=== PATIENT | male | born 1980 | race African-American/Black ===

== ENCOUNTER 2022-06-17 09:58 | Emergency (ER) | payer OTHER ==
[2022-06-17] MEDS ORDERED: PANTOPRAZOLE 40 MG TABLET PO STA (10:44)
[2022-06-17] MEDS ORDERED: MAG HYDROX/AL HYDROX/SIMETH 30 ML, HYOSCYAMINE ELIXIR 10 ML PO STA ×2 (10:44)
[2022-06-17] MEDS ORDERED: KETOROLAC 15 MG/ML 1 ML VIAL IM STA (10:45)
[2022-06-17] MEDS ORDERED: diphenhydrAMINE 25 MG CAP PO STA (10:45)
[2022-06-17] MEDS ORDERED: DEXAMETHASONE SOD PHOSPHATE 10 MG/ML 1 ML VIAL IM STA (10:45)
--- NOTE | 2022-06-17 12:00 | ED ---
Extremity Problem HPI - General Chief complaint: Extremity Injury, Upper Stated complaint: shoulder pain Time Seen by Provider: 06/17/22 10:09 Source: patient, EMS, RN notes reviewed Mode of arrival: EMS Limitations: no limitations - History of Present Illness Initial comments: This is a 41-year-old male who presents to the emergency department for burning in his armpits and acid reflux. He is currently being treated at [facility] for cocaine use and has been there for 5 days. States that over the last day, he has had an increase in heartburn as well as burning and itching to both armpits. He did try to use rubbing alcohol in the armpits with no relief. He has a history of acid reflux which he treats with Prilosec, however he has not taken this today. Denies any history of problems with his armpits. Denies any fevers, chills, sore throat, cough, dyspnea, chest pain, palpitations, abdominal pain, nausea, vomiting, diarrhea, back pain, or headaches. MD Complaint: extremity pain - Related Data Previous Rx's Medication Instructions Recorded Omeprazole [PriLOSEC] 40 mg PO DAILY #15 cap 06/17/22 Triamcinolone 0.1% Cream [Kenalog 1 applicatio TOPICAL QID PRN #80 gm 06/17/22 0.1% Cream] diphenhydrAMINE [Benadryl] 25 mg PO BID PRN #10 capsule 06/17/22 predniSONE 50 mg PO DAILY 5 Days #5 tab 06/17/22 Allergies Allergy/AdvReac Type Severity Reaction Status Date / Time No Known Allergies Allergy Verified 06/17/22 10:07 Review of Systems ROS Statement: Those systems with pertinent positive or pertinent negative responses have been documented in the HPI. ROS Other: All systems not noted in ROS Statement are negative. Past Medical History Past Medical History: GERD/Reflux History of Any Multi-Drug Resistant Organisms: None Reported Past Surgical History: Appendectomy, Orthopedic Surgery Past Psychological History: ADD/ADHD, Bipolar Smoking Status: Current every day smoker Past Alcohol Use History: Occasional Past Drug Use History: Cocaine General Exam Limitations: no limitations General appearance: alert, in no apparent distress Head exam: Present: atraumatic, normocephalic, normal inspection Respiratory exam: Present: normal lung sounds bilaterally. Absent: respiratory distress, wheezes, rales, rhonchi, stridor Cardiovascular Exam: Present: regular rate, normal rhythm, normal heart sounds. Absent: systolic murmur, diastolic murmur, rubs, gallop, clicks Extremities exam: Present: other (Tenderness to palpation of the axilla bilaterally. Range of motion does reproduce symptoms, however he has full active and passive range of motion.) Neurological exam: Present: alert, oriented X3, CN II-XII intact Psychiatric exam: Present: normal affect, normal mood Course Vital Signs 06/17/22 06/17/22 10:02 13:06 Temperature 98.1 F 97.7 F Pulse Rate 75 86 Respiratory 18 16 Rate Blood Pressure 127/88 147/77 O2 Sat by Pulse 100 99 Oximetry Medical Decision Making - Medical Decision Making This is a 41-year-old male who presents to the emergency department for pain in the bilateral axilla and acid reflux. He was given a dose of Prilosec and a GI cocktail for the acid reflux, which he states was very effective. The symptoms in his armpits were treated with Benadryl, Decadron, and Toradol, followed by application of triamcinolone cream. He noted remarkable improvement afterwards as well. Symptoms likely related to a dermatitis of some sort. Instructed him to avoid any heavy or scented soaps or lotions. Also instructed him to avoid using rubbing alcohol, as this can make symptoms worse. Prescription for prednisone, Prilosec, and triamcinolone cream provided, with dosing and instructions reviewed. He was also given a prescription for Benadryl to be used as needed for any additional itching or burning. Advised that this can be sedating. Patient discharged back to [facility]. Return precautions reviewed in depth, the patient is instructed to return to the emergency department with any new, worsening, or concerning symptoms. Patient verbalized understanding. This case was discussed in detail with the attending ED physician. Presentation, findings, and treatment plan discussed in detail as well. Disposition Clinical Impression: Acid reflux, Axillary pain Disposition: HOME SELF-CARE Instructions (If sedation given, give patient instructions): GERD (Gastroesophageal Reflux Disease) (ED) Additional Instructions: Return to the emergency department with any new, worsening, or concerning symptoms. Take the Prilosec daily for control of your acid reflux. You can apply the Kenalog cream 2-4 times daily in the armpit region. Take the prednisone daily for 5 days and the benadryl up to twice daily for itching/burning. Follow up with your primary care provider in 1-2 days. Prescriptions: diphenhydrAMINE [Benadryl] 25 mg PO BID PRN #10 capsule PRN Reason: Itching Triamcinolone 0.1% Cream [Kenalog 0.1% Cream] 1 applicatio TOPICAL QID PRN #80 gm PRN Reason: Itching predniSONE 50 mg PO DAILY 5 Days #5 tab Omeprazole [PriLOSEC] 40 mg PO DAILY #15 cap Is patient prescribed a controlled substance at d/c from ED?: No Referrals: None,Stated [Primary Care Provider] - 1-2 days
[2022-06-17] MEDS ORDERED: HYDROCORTISONE 1% CREAM 30 GM TUBE TOPICAL ONE (12:16)
[2022-06-17] MEDS ORDERED: TRIAMCINOLONE ACET 0.1% OINTMENT 15 GM TUBE TOPICAL ONE (12:18)
[2022-06-17 13:07] VITALS: BP 147/77; PULSE 86; RESP 16; TEMP 97.7
== END 2022-06-17 13:14 | disposition home or self-care (01) ==
LOC: EC 09:58
DX: K21.9 Gastro-esophageal reflux disease without esophagitis (principal); M79.602 Pain in left arm; M79.601 Pain in right arm; F17.200 Nicotine dependence, unspecified, uncomplicated; Z79.899 Other long term (current) drug therapy
CPT/HCPCS: 99283; 96372; J1100; J1885